=== PATIENT | female | born 1950 | race African-American/Black ===

== ENCOUNTER 2022-05-27 09:17 | Day surgery (SDC) | payer OTHER ==
[2022-05-27] MEDS ORDERED: FERRIC CARBOXYMALTOSE 750 MG in SODIUM CHLORIDE 250 ML IVPB SCH (10:00)
[2022-05-27] MEDS ORDERED: ACETAMINOPHEN 1000 MG/100 ML BAG IVPB ONE (11:16)
[2022-05-27 11:58] LABS: HEMATOCRIT 28.2 % (32.4-45.2); HEMOGLOBIN 9.2 G/dL (10.7-15.3); MCH 24.8 pg (25.7-33.7); MCHC 32.7 g/dl (32.0-36.0); MEAN CELL VOLUME 75.9 fl (80-96); MEAN PLT VOLUME 7.8 fl (7.5-11.1); PLATELET COUNT 543.2 10^3/uL (134-434); RBC 3.72 10^6/uL (3.60-5.2); RDW 18.7 % (11.6-15.6); WHITE BLOOD COUNT 10.7 10^3/uL (4.0-10.8)
[2022-05-27 12:05] LABS: ALBUMIN 2.7 g/dl (3.4-5.0); BILIRUBIN,TOTAL 0.4 mg/dl (0.2-1); CALCIUM 9.3 mg/dl (8.5-10); CREATININE 0.5 mg/dl (0.55-1.3); TOT PROT 7.4 g/dl (6.4-8.2)
[2022-05-27 12:54] VITALS: RESP 16
[2022-05-27 13:36] LABS: ANISOCYTOSIS 1+; PLATELET ESTIMATE MOD INCREASED
[2022-05-27 13:38] VITALS: PULSE 74; TEMP 98
[2022-05-27 15:12] VITALS: BP 130/64
== END 2022-05-27 15:18 | disposition home or self-care (01) ==
LOC: FINFUSION 09:17 → FM/S 09:25 → FINFUSION 15:18
PROVIDERS: ATTEND Family Medicine
PROC: 3E033GC Introduction of Other Therapeutic Substance into Peripheral Vein, Percutaneous Approach (ICD-10-PCS; principal; 2022-05-27)
DX: D50.9 Iron deficiency anemia, unspecified (principal)
CPT/HCPCS: 36415; 80053; 84484; 85027; 93005; 96374; 96375; J1439